=== PATIENT | male | born 1960 | race Caucasian/White ===

== ENCOUNTER 2025-03-08 10:21 | Day surgery (SDC) | payer MEDICARE, OTHER ==
[2025-03-08] MEDS ORDERED: fentaNYL 50 MCG/ML SDV ONE (10:26)
[2025-03-08] MEDS ORDERED: Propofol 200 MG/20 ML SDV ONE ×2 (10:26→12:34)
[2025-03-08] MEDS ORDERED: Midazolam 1 MG/ML 2 ML SDV ONE (10:26)
[2025-03-08] MEDS: Lactated Ringers 1,000 ML IV SCH (11:08)
== END 2025-03-08 13:55 | disposition home or self-care (01) ==
LOC: JP.SDS 10:21
PROVIDERS: ATTEND Surgery
DX: Z12.11 Encounter for screening for malignant neoplasm of colon (principal); D12.2 Benign neoplasm of ascending colon; D12.3 Benign neoplasm of transverse colon; K57.30 Diverticulosis of large intestine without perforation or abscess without bleeding; Z88.8 Allergy status to other drugs, medicaments and biological substances; Z79.82 Long term (current) use of aspirin; Z79.84 Long term (current) use of oral hypoglycemic drugs; Z79.899 Other long term (current) drug therapy
CPT/HCPCS: 45380; 45385; J2704; J3010; J7120; J2250